=== PATIENT | female | born 1980 | race African-American/Black ===

== ENCOUNTER → 2017-06-06 | Outpatient (CLI) | payer BC ==
[~2017-06-06] MED LIST: DOCU100C37 PO; IBUP-1780 PO; OXYC-465 PO; PREN1TAB86 PO
--- NOTE | 2017-06-06 18:01 | Diagnostic Imaging Report ---
EXAMINATION: Right knee three views. INDICATION: Right knee pain. FINDINGS: There is no fracture, dislocation, or radiopaque foreign body. There is slight narrowing of the medial compartment joint space. No significant joint effusion seen. IMPRESSION: Slight narrowing of the medial compartment joint space is suggestive of early osteoarthritis changes. Dictated by: Dictated on workstation # [id number]
--- NOTE | 2017-06-06 18:03 | Diagnostic Imaging Report ---
EXAMINATION: Three views of the lumbar spine. INDICATION: Back pain. FINDINGS: The alignment of the posterior spinal line is satisfactory. The vertebral body heights are preserved. Disc heights are also preserved. There are mild anterior osteophytes noted. Moderate amount of fecal material in the colon is seen. There is a calcification in the right side of the pelvis suggestive of phlebolith. IMPRESSION: Mild degenerative changes. Dictated by: Dictated on workstation # [id number]
== END ==
LOC: RAD 15:54
PROVIDERS: ATTEND Nurse Practitioner Family
DX: M54.5 Low back pain (principal); M25.561 Pain in right knee
CPT/HCPCS: 72100; 73562

== ENCOUNTER 2017-08-19 13:03 | Outpatient (RCR) | payer BC | END 2017-08-20 | disposition home or self-care (01) | PROVIDERS: ATTEND Orthopaedic Surgery | DX: M22.41 Chondromalacia patellae, right knee (principal) ==

== ENCOUNTER → 2018-05-04 | Outpatient (CLI) | payer BC ==
--- NOTE | 2018-05-05 09:17 | Diagnostic Imaging Report ---
Indication: Screening. No prior mammograms are available for comparison. This is a baseline study. 2-D and 3-D bilateral screening mammography was performed with CAD. Scattered fibroglandular densities are identified bilaterally. No dominant mass or malignant-appearing microcalcifications are seen. Axillae are unremarkable. Impression: BI-RADS category 1. No mammographic features suspicious for malignancy are identified. ACR BI-RADS Category 1: Negative. Result letter will be mailed to the patient. Note: At least 10% of breast cancer is not imaged by mammography. Dictated by: Dictated on workstation # [id number]
== END ==
LOC: RAD 14:53
PROVIDERS: ATTEND Obstetrics & Gynecology
DX: Z12.31 Encounter for screening mammogram for malignant neoplasm of breast (principal)
CPT/HCPCS: 77067